=== PATIENT | female | born 1990 | race Caucasian/White ===

== ENCOUNTER 2016-11-13 04:15 | Emergency (ER) | payer SELFPAY ==
[~2016-11-13] VITALS: Ht 167.6 cm; Wt 45.4 kg
[2016-11-13 04:18] VITALS: BP_SYST 144
--- NOTE | 2016-11-13 04:18 | NUR ---
Pt BIB [facility] in cuffs. Pt c/o SOB and chest pain. C/P reproducible upon palpation, non-radiating. Pt arrested for driving under the influence. - trauma, no collision.
--- NOTE | 2016-11-13 04:18 | NUR ---
Pt placed to [facility].
--- NOTE | 2016-11-13 04:20 | NUR ---
Dr. Giordano assessing pt.
--- NOTE | 2016-11-13 04:32 | NUR ---
Patient given written and verbal discharge instructions and verbalizes understanding. ER MD discussed with patient the results and treatment provided. Patient in stable condition. ID arm band removed. Patient educated on pain management and to follow up with PMD. Pain Scale 6/10, NAD. Pt intoxicated. Opportunity for questions provided and answered. Pt leaves in c/o [facility], in cuffs, to senior care. Ambulates without difficulty.
== END 2016-11-13 04:32 ==
LOC: SED 04:15
DX: Z02.89 Encounter for other administrative examinations (principal); F10.10 Alcohol abuse, uncomplicated; F41.9 Anxiety disorder, unspecified
CPT/HCPCS: 99283